=== PATIENT | female | born 1965 | race Caucasian/White ===

== ENCOUNTER → 2019-06-17 | Outpatient (CLI) | payer OTHER ==
--- NOTE | 2019-06-17 15:58 | Diagnostic Imaging Report ---
Thyroid ultrasound CPT code: 49200 History: Thyroid nodules Comparison: Thyroid ultrasound of 04/14/2017 Findings: The thyroid echotexture is heterogeneous. Vascularity is normal. The right lobe measures 4.8 x 1.7 x 2.3 cm. The left lobe measures 4.5 x 1.5 x 1.7 cm. The isthmus measures 0.5 cm. Nodules (measurements are AP, transverse, craniocaudal): Right Lobe: Interpolar 1.5 x 0.5 x 0.9 cm isoechoic nodule without internal calcification. Interpolar 0.8 x 0.9 x 0.8 cm spongiform nodule without internal calcification (previously 0.9 cm). Multiple subcentimeters cysts. Left Lobe: Multiple cysts, measuring up to 1.4cm, previously up to 1.0 cm. Isthmus: Isoechoic 1.4 cm nodule, unchanged from prior study. Lymph Nodes: No cervical lymph nodes are identified. Parathyroids: Not visualized. IMPRESSION: Multiple thyroid nodules and cysts as above, stable compared to the thyroid ultrasound of 04/14/2017. ACR glossary of thyroid rads TI-RADS 1: No focal lesion. TI-RADS 2: Not suspicious. TI-RADS 3: Mildly suspicious (recommend FNA is greater than or equal to 2.5 cm; follow-up at 1, 3, and 5 years if greater than or equal to 1.5 cm) TI-RADS 4: Moderately Suspicious (recommend FNA is greater than or equal to 1.5 cm; follow-up at 1, 2, 3, and 5 years) TI-RADS 5: Highly suspicious (recommend FNA is greater than or equal to 10 mm) TI-RADS 6: Biopsy-proven malignancy Signed by: Delmy Panchal MD on 06/17/2019 3:54 PM
== END ==
LOC: US 12:17
PROVIDERS: ATTEND Otolaryngology
DX: E04.2 Nontoxic multinodular goiter (principal)
CPT/HCPCS: 76536

== ENCOUNTER → 2019-07-09 | Day surgery (SDC) | payer OTHER ==
[~2019-07-09] MED LIST: CALCIUM PO; DEXAMETHASONE SOD PHOS INJ 4 MG/ML VIAL IV ONE; FAMOTIDINE 20 MG/2 ML VIAL IV ONE; KETOROLAC TROMETHAMINE 30 MG/ML VIAL IV ONE; LIDOCAINE 1% W/EPINEPHRINE 20 ML VIAL ONE; LIDOCAINE HCL 2% LOCAL INJ 5 ML SDV VIAL INJ ONE; METOCLOPRAMIDE HCL 10 MG/2ML VIAL IV ONE; MIDAZOLAM HCL 2 MG/2 ML VIAL ONE; MULTI-VITAMIN1 EACH PO; ONDANSETRON HCL INJ 2MG/ML 2ML 2 MG/ML VIAL IV ONE; OXYMETAZOLINE HCL 0.05% NAS 1 SPRAY BTL ONE; PROPOFOL IV EMULSION 10 MG/ML 20 ML VIAL IV ONE; SCOPOLAMINE 1.5 MG PATCH ONE; SEVOFLURANE INHAL SOLN 250 ML PEN BTL INH ONE; VIT C PO
[2019-07-09 10:05] VITALS: BP 132/79
--- NOTE | 2019-07-09 16:36 | Operative Report ---
DATE OF PROCEDURE: 07/09/2019 SURGEON: Sadi Ponce MD PREOPERATIVE DIAGNOSIS: Nasal obstruction (right greater than left), turbinate hypertrophy (right greater than left). POSTOPERATIVE DIAGNOSIS: Nasal obstruction (right greater than left), turbinate hypertrophy (right greater than left). PROCEDURE: Bilateral submucous resection (reductions) of inferior turbinates. SIGNIFICANT FINDINGS: Severe hypertrophy of inferior turbinates bilaterally. MARKETING EXECUTIVE: None. GENERAL LARYNGEAL: Laryngeal mask anesthesia. SPECIMENS REMOVED: None. ESTIMATED BLOOD LOSS: 2 mL. COMPLICATIONS: None. INDICATIONS: The patient is a 54-year-old white female with greater than 11 years history of "increased drippy condensation in the nose," right greater than left nasal obstruction, enlarged right greater than left inferior turbinate hypertrophy. She has been refractory to maximal medical treatment. She was unable to tolerate in-office turbinate reductions with the ArthroCare Coblator. On examination, she has significant bilateral inferior turbinate hypertrophy, worse on the right than the left. The septum appears to be straight. She is scheduled for bilateral inferior turbinate reductions with submucous resection for the treatment of right greater than left nasal obstruction due to right greater than left inferior turbinate hypertrophy. The risks and complications of the procedures were thoroughly discussed with the patient they include infection, bleeding, scarring, failure to improve, persistent nasal obstruction, persistent nasal symptoms, damage to the external cosmetic appearance of the nose, persistent nasal symptoms and inability to smell or taste, chronic dry, irritated, painful nose, need for blood transfusions, damage to surrounding nerves, blood vessels and muscles. She fully understands and gives consent. DESCRIPTION OF PROCEDURE: The patient was taken to the operating room and placed supine on the operating table where general anesthesia was achieved through a laryngeal mask anesthesia. Eyes were taped. Face was prepped and draped. Examination with the 0 degree rigid nasal endoscope prior to the vasoconstriction, revealed significant edema and hypertrophy of the inferior turbinates bilaterally. Cottonoid pledgets soaked with Afrin were then inserted into the nose bilaterally and were then removed. Injection with 1% lidocaine with 1:100,000 epinephrine was injected into the anterior inferior aspects of the inferior turbinates bilaterally. Stab incisions were then made in the anterior aspects of the inferior turbinates bilaterally with a 15 blade. Dissection was then carried out, medial and lateral to the inferior turbinate bone. The inferior aspects of the inferior turbinate bone were then taken down with Mauricio-Cut instruments. The submucous tissue was then further debrided with the microdebrider. Hemostasis was obtained with cottonoid pledgets soaked with Afrin. The inferior turbinates were then lateralized with a Bovie elevator. The patient was awakened in the operating room, extubated, and taken to the recovery room in good condition. MD SUGEY Walker/BETH /[id number] MTDD
--- OUTSIDE RECORDS SUMMARY | 2019-07-16 11:49 | XMS REPORT ---
[facility] Address Unknown Phone Unavailable Care Team Providers Care Foreclosure Clerk Name Role Phone MADDY STRINGER Unavailable Unavailable Problems This patient has no known problems. Allergies, Adverse Reactions, Alerts This patient has no known allergies or adverse reactions. Medications This patient has no known medications. Results Test Description Test Time Test Comments Text Results Atomic Results Result Comments THYROID 2019-06-17 15:50:00 [place] [id number] Patient Name: NASIM JACKSON MR #: [id number] : 1965 Age/Sex: 54/F Req #: [id number] Adm Physician: Ordered by: SIOMARA CARROLL, MADDY CARROLL Report #: [id number] Location: US Room/Bed: Procedure: [id number] US/US THYROID Exam Date: 06/17/19 Exam Time: 1251 REPORT STATUS: Signed Thyroid ultrasound CPT code: 28111 History: Thyroid nodules Comparison: Thyroid ultrasound of 04/14/2017 Findings: The thyroid echotexture is heterogeneous. Vascularity is normal. The right lobe measures 4.8 x 1.7 x 2.3 cm. The left lobe measures 4.5 x 1.5 x 1.7 cm. The isthmus measures 0.5 cm. Nodules (measurements are AP, transverse, craniocaudal): Right Lobe: Interpolar 1.5 x 0.5 x 0.9 cm isoechoic nodule without internal calcification. Interpolar 0.8 x 0.9 x 0.8 cm spongiform nodule without internal calcification (previously 0.9 cm). Multiple subcentimeters cysts. Left Lobe: Multiple cysts, measuring up to 1.4cm, previously up to 1.0 cm. Isthmus: Isoechoic 1.4 cm nodule, unchanged from prior study. Lymph Nodes: No cervical lymph nodes are identified. Parathyroids: Not visualized. IMPRESSION: Multiple thyroid nodules and cysts as above, stable compared to the thyroid ultrasound of 04/14/2017. ACR glossary of thyroid rads TI-RADS 1: No focal lesion. TI-RADS 2: Not suspicious. TI-RADS 3: Mildly suspicious (recommend FNA is greater than or equal to 2.5 cm; follow-up at 1, 3, and 5 years if greater than or equal to 1.5 cm) TI-RADS 4: Moderately Suspicious (recommend FNA is greater than or equal to 1.5 cm; follow-up at 1, 2, 3, and 5 years) TI-RADS 5: Highly suspicious (recommend FNA is greater than or equal to 10 mm) TI-RADS 6: Biopsy-proven malignancy Signed by: Flor Swartz MD on 06/17/2019 3:54 PM Dictated By: FLOR SWARTZ MD 53 Transcribed By: RAKESH on 06/17/191553 COPY TO: MADDY STRINGER THYROID [place] [address] Patient Name: NASIM JACKSON MR #: [id number] : 1965 Age/Sex: 52/F Req #: [id number] Adm Physician: Ordered by: MADDY STRINGER MD, MD Report #: [id number] Location: Room/Bed: Procedure: US/US THYROID Exam Date: 04/14/17 Exam Time: 1332 REPORT STATUS: Signed PROCEDURE: US THYROID COMPARISON: None. INDICATIONS: Multiple Thyroid Nodules TECHNIQUE: Transverse and longitudinal white-scale sonographic images of the thyroid were obtained and supplemented with color doppler. FINDINGS: Right thyroid lobe: 5.4 x 1.9 x 2.2 cm. Left thyroid lobe: 4.1 x 1.2 x 1.8 cm. Isthmus: 0.4 cm. Multiple thyroid nodules are present: Isthmus, hypoechoic, 0.6 x 0.2 x 0.4 cm. Right thyroid lobe/isthmus, solid hypoechoic nodule 1.4 x 0.7 x 1.4 cm. Right thyroid lobe, interpolar region, complex nodule 0.9 x 0.7 x 0.9 cm. Right thyroid lobe, interpolar region, anechoic nodule 1.7 x 0.7 x 1.4 cm. Left thyroid lobe, multiple anechoic regions, largest measuring 1.0 x 0.6-0.6 cm in the interpolar region. CONCLUSION: Bilateral thyroid nodules. Dictated by: Deven Truong M.D. on 04/17/2017 at 7:55 Electronically approved by: Deven Truong M.D. on 04/17/2017 at 7:55 Dictated By: DEVEN TRUONG MD 0755 Transcribed By: SAHIL on 04/17/17 0755 COPY TO: MADDY STRINGER GUIDANCE FOR PROCEDURE [place] [id number] Patient Name: NASIM JACKSON MR #: [id number] : 1965 Age/Sex: 52/F Req #: [id number] Adm Physician: Ordered by: MADDY STRINGER MD, MD Report #: [id number] Location: Room/Bed: Procedure: US/US GUIDANCE FOR PROCEDURE Exam Date: 04/14/17 Exam Time: 1423 REPORT STATUS: Signed PROCEDURE: ULTRASOUND GUIDANCE FOR PROCEDURE COMPARISON: Ultrasound thyroid 04/14/2017. INDICATIONS: Multiple Thyroid Nodules FINDINGS: See below. CONCLUSION: Ultrasound guidance was utilized for thyroid biopsy. Dictated by: Deven Truong M.D. on 04/17/2017 at 7:56 Electronically approved by: Deven Truong M.D. on 04/17/2017 at 7:56 Dictated By: DEVEN TRUONG MD 5 Transcribed By: SAHIL on 04/17/17755 COPY TO: MADDY STRINGER THYROID [place] [address] Patient Name: NASIM JACKSON MR #: [id number] : 1965 Age/Sex: 52/F Req #: [id number] [facility] Physician: Ordered by: MADDY STRINGER MD, MD Report #: [id number] Location: Room/Bed: Procedure: US/FNA THYROID Exam Date: 04/14/17 Exam Time: 1423 REPORT STATUS: Signed PROCEDURE: BIOPSY THYROID FNA COMPARISON: None. INDICATIONS: Multiple Thyroids FINDINGS: Written and verbal consent were obtained. Patient was placed supine. Preliminary focused sonographic images of the right thyroid lobe demonstrated the largest nodule in the right lobe of the liver with mixed echogenicity. A safe approach was determined. The overlying skin was prepped and draped in usual sterile fashion. Lidocaine 1% was used for local pain control. Utilizing ultrasound guidance, fine needle aspiration biopsy samples x7 were obtained of the right thyroid nodule. The specimens were given to pathology, who was at bedside. The pathologist determined the specimens to be of proper cellularity for diagnosis. Focused sonographic ultrasound demonstrated no hematoma. A sterile dressing was applied. The patient tolerated the procedure well, and there were no immediate post- procedural complications. CONCLUSION: Successful ultrasound-guided fine needle aspiration biopsy of a right thyroid nodule. Dictated by: Deven Truong M.D. on 04/17/2017 at 8:00 Electronically approved by: Deven Truong M.D. on 04/17/2017 at 8:01 Dictated By: DEVEN TRUONG MD Vicky ctronically Signed By: DEVEN TRUONG MD on 04/17/17800 Transcribed By: SAHIL on 04/17/17800 COPY TO: MADDY STRINGER
== END | disposition home or self-care (01) ==
LOC: OR 06:09
PROVIDERS: ATTEND Otolaryngology
DX: J34.3 Hypertrophy of nasal turbinates (principal); J34.89 Other specified disorders of nose and nasal sinuses; Z01.810 Encounter for preprocedural cardiovascular examination; Z85.3 Personal history of malignant neoplasm of breast
CPT/HCPCS: 30140; 93005; J1100; J1885; J2001; J2250; J2405; J2704; J2765

== ENCOUNTER → 2020-05-26 | Outpatient (CLI) | payer OTHER ==
[~2020-05-26] MED LIST changes: -DEXAMETHASONE SOD PHOS INJ 4 MG/ML VIAL IV ONE; -FAMOTIDINE 20 MG/2 ML VIAL IV ONE; -KETOROLAC TROMETHAMINE 30 MG/ML VIAL IV ONE; -LIDOCAINE 1% W/EPINEPHRINE 20 ML VIAL ONE; -LIDOCAINE HCL 2% LOCAL INJ 5 ML SDV VIAL INJ ONE; -METOCLOPRAMIDE HCL 10 MG/2ML VIAL IV ONE; -MIDAZOLAM HCL 2 MG/2 ML VIAL ONE; -ONDANSETRON HCL INJ 2MG/ML 2ML 2 MG/ML VIAL IV ONE; -OXYMETAZOLINE HCL 0.05% NAS 1 SPRAY BTL ONE; -PROPOFOL IV EMULSION 10 MG/ML 20 ML VIAL IV ONE; -SCOPOLAMINE 1.5 MG PATCH ONE; -SEVOFLURANE INHAL SOLN 250 ML PEN BTL INH ONE
== END | disposition home or self-care (01) ==
LOC: US 09:59
PROVIDERS: ATTEND Otolaryngology
DX: E04.2 Nontoxic multinodular goiter (principal)
CPT/HCPCS: 76536

== ENCOUNTER 2021-05-05 10:18 | Emergency (ER) | payer OTHER ==
[~2021-05-05] VITALS: Ht 160 cm; Wt 59.0 kg
[2021-05-05] MEDS ORDERED: ZOFRAN4 MG SL (10:43)
[2021-05-05] MEDS ORDERED: DECADRON4 M1 PO (10:43)
[2021-05-05] MEDS ORDERED: ACETAMINOPHEN 325 MG TAB PO ONE (10:45)
[2021-05-05] MEDS ORDERED: ONDANSETRON HCL 4 MG ORAL DISINTEGRATING TAB ONE (10:53)
[2021-05-05] MEDS ORDERED: ONDANSETRON HCL 4 MG ORAL DISINTEGRATING TAB PO ONE (12:00)
== END 2021-05-05 10:56 | disposition home or self-care (01) ==
LOC: FSED 10:41
DX: U07.1 COVID-19 (principal); R50.9 Fever, unspecified; R05.9 Cough, unspecified; F17.210 Nicotine dependence, cigarettes, uncomplicated
CPT/HCPCS: 71045; 99283; Q0162; U0002

== ENCOUNTER 2021-05-05 14:58 | Emergency (ER) | payer OTHER ==
[~2021-05-05] VITALS: Ht 160 cm; Wt 59.0 kg
[~2021-05-05 14:58] MED LIST changes: +DECADRON4 M1 PO; +ZOFRAN4 MG SL
[2021-05-05] MEDS ORDERED: CASIRIVIMAB/IMDEVIMAB 10 ML in SODIUM CHLORIDE 0.9% 100 ML IV ONE (15:15)
[2021-05-05 15:49] VITALS: BP 110/69
== END 2021-05-05 15:57 | disposition home or self-care (01) ==
LOC: ER 15:28
DX: U07.1 COVID-19 (principal); R05.9 Cough, unspecified; R11.0 Nausea; Z85.3 Personal history of malignant neoplasm of breast
CPT/HCPCS: 99282; J7050; 99283

== ENCOUNTER → 2021-06-01 | Outpatient (CLI) | payer OTHER | LOC: US 07:56 | PROVIDERS: ATTEND Otolaryngology | DX: E04.2 Nontoxic multinodular goiter (principal) | CPT/HCPCS: 76536 ==

== ENCOUNTER 2021-08-15 02:14 | Emergency (ER) | payer OTHER ==
[~2021-08-15] VITALS: Ht 160 cm; Wt 61.2 kg
[2021-08-15] MEDS ORDERED: KETOROLAC TROMETHAMINE 60 MG/2 ML VIAL IM ONE (03:00)
[2021-08-15] MEDS ORDERED: KETOROLAC TROME10 MG PO (03:57)
[2021-08-15] MEDS ORDERED: ULTRAM 50MG50 MG PO (03:58)
[2021-08-15 04:02] VITALS: BP 120/80
== END 2021-08-15 04:05 | disposition home or self-care (01) ==
LOC: FSED 02:45
DX: R07.89 Other chest pain (principal); S29.011A Strain of muscle and tendon of front wall of thorax, initial encounter; Z85.3 Personal history of malignant neoplasm of breast
CPT/HCPCS: 71101; 81003; 96372; 99283; J1885

== ENCOUNTER → 2022-06-28 | Outpatient (CLI) | payer OTHER ==
[~2022-06-28] MED LIST changes: +KETOROLAC TROME10 MG PO; +ULTRAM 50MG50 MG PO
== END ==
LOC: US 10:36
PROVIDERS: ATTEND Otolaryngology
DX: E04.2 Nontoxic multinodular goiter (principal)
CPT/HCPCS: 76536

== ENCOUNTER → 2023-08-15 | Outpatient (REF) | payer OTHER ==
[~2023-08-15] MED LIST changes: +LIDOCAINE HCL 1% LOCAL INJ 20 ML VIAL ONE
== END ==
LOC: US 08:55
PROVIDERS: ATTEND Otolaryngology
DX: E04.2 Nontoxic multinodular goiter (principal)
CPT/HCPCS: 10005; 88172; 88173; J2001